=== PATIENT | male | born 1975 | race Caucasian/White ===

== ENCOUNTER 2020-09-09 01:51 | Emergency (ER) | payer SELFPAY ==
[~2020-09-09] VITALS: Ht 167.6 cm; Wt 90.9 kg
[~2020-09-09 01:51] MED LIST: DILAUDID2 MG PO
[2020-09-09 01:58] VITALS: Ht 167.6 cm; Wt 90.9 kg
[2020-09-09 02:38] LABS: BASOPHILS 0.4 % (0-2); EOSINOPHILS 1.8 % (0-7); HEMATOCRIT 44.1 % (42.0-54.0); HEMOGLOBIN 14.6 g/dL (13.5-17.5); LYMPHOCYTES 13.9 % (15-50); MCHC 33.1 g/dL (31.0-37.0); MCV 90.8 fL (80.0-100.0); MEAN PLATELET VOLUME 7.9 fL (7.4-10.4); NEUTROPHILS 74.9 % (40-80); PLATELET COUNT 260 10x3/uL (130-400); RBC 4.86 10x6/uL (4.20-6.10); RDW 14.1 % (11.5-14.5); WBC 14.3 10x3/uL (4.8-10.8)
[2020-09-09 02:40] LABS: INR 1.04 (0.85-1.17); PROTIME 12.6 SECONDS (11.6-15.0)
[2020-09-09 02:42] LABS: CALC OSMOLALITY 278 mosm/kg (275-300); CHLORIDE - SERUM 101 mmol/L (98-107); CREATININE - SERUM 1.1 mg/dL (0.6-1.3); GLUCOSE 109 mg/dL (74-106); POTASSIUM - SERUM 4.2 mmol/L (3.5-5.1); SODIUM 139 mmol/L (136-145); UREA NITROGEN 12 mg/dL (7-18); eGFR NON AFRICAN AMERICAN 78 mL/min (90-120)
[2020-09-09 02:52] LABS: D-DIMER-QUANTITATIVE < 0.27 ug/mLFEU (0.20-0.54)
[2020-09-09 02:59] LABS: ALBUMIN 3.7 g/dL (3.4-5.0); ALKALINE PHOSPHATASE 177 U/L (30-120); ALT (SGPT) 38 U/L (10-68); BILIRUBIN - TOTAL 0.34 mg/dL (0.2-1.3); CKMB 1.1 U/L (0.0-3.6); CREATINE KINASE 94 UL (21-232); LIPASE 84 U/L (73-393); PRO BNP 78 pg/mL (0-125); PROTEIN - SERUM 7.7 g/dL (6.4-8.2); TROPONIN-I < 0.017 ng/mL (0.000-0.060)
[2020-09-09] MEDS ORDERED: PROTONIX40 MG PO (06:43)
[2020-09-09] MEDS ORDERED: ZPAK PO (06:43)
[2020-09-09 07:28] VITALS: BP 152/82
== END 2020-09-09 07:26 | disposition home or self-care (01) ==
LOC: D.ER 01:51
PROVIDERS: Emergency Medicine
DX: R07.9 Chest pain, unspecified (principal); F15.10 Other stimulant abuse, uncomplicated